=== PATIENT | male | born 1965 ===

== ENCOUNTER 2023-06-04 14:38 | Emergency (ER) | payer BC ==
[~2023-06-04] VITALS: Ht 185.4 cm; Wt 99.8 kg
[2023-06-04] MEDS ORDERED: CHILDREN'S ASPI81 MG PO (14:52)
[2023-06-04 15:37] LABS: HEMATOCRIT 42.1 % (39.0-48.0); HEMOGLOBIN 14.6 g/dL (13-16.00); MEAN CELL VOLUME 85.2 fL (80.0-100.00); MEAN CORPUSCULAR HEMOGLOBIN 29.5 pg (27.00-32.0); MEAN CORPUSCULAR HGB CONC 34.6 g/dl (32.0-36.0); PLATELET COUNT 204 K/uL (150-450); RED BLOOD COUNT 4.94 M/uL (4.00-6.00); RED CELL DISTRIBUTION WIDTH 13.7 % (11.5-14.5)
[2023-06-04 15:56] LABS: PARTIAL THROMBOPLASTIN TIME 25.7 SECONDS (22.0-34.0); PROTHROMBIN TIME 10.5 SECONDS (9.0-11.5)
[2023-06-04 16:02] LABS: CALCIUM 8.8 mg/dL (8.5-10.1); CREATININE SERUM 1.18 mg/dL (0.70-1.30); GFR 64.09; POTASSIUM 3.72 mEq/L (3.5-5.1)
== END 2023-06-04 19:31 | disposition home or self-care (01) ==
LOC: ER 14:38
PROVIDERS: Emergency Medicine
DX: R07.9 Chest pain, unspecified (principal); Z88.6 Allergy status to analgesic agent